=== PATIENT | male | born 1980 | race Caucasian/White ===

== ENCOUNTER 2017-01-21 21:01 | Emergency (ER) | payer BC ==
[~2017-01-21] VITALS: Ht 167.6 cm; Wt 86.3 kg
[2017-01-21 22:02] VITALS: Ht 167.6 cm; Wt 86.3 kg
[2017-01-22] MEDS ORDERED: HYDROCODONE/APAP (5/325) TAB PO ONE (01:30)
--- NOTE | 2017-01-22 02:16 | RADRPT ---
PROCEDURE: CT head, without contrast. CLINICAL INDICATION: Headache for 3 weeks. TECHNIQUE: Noncontrast CT examination of the head, with axial, sagittal and coronal reformatted im ages. Automated dose exposure control was employed. CTDI: 45.01 and DLP: 720.23. COMPARISON: None. FINDINGS: Chronic changes of atrophy and small vessel disease white matter. No acute hemorrhage. Subarachnoid spaces are substantially preserved and symmetric. Ventricles ar e unremarkable. No mass effect. [place]-white matter distinction is preserved without evident decreased attenuation t o suggest acute or recent infarct. Mild mucosal thickening scattered throughout the ethmoid air cells with mucous retention cysts in th e right maxillary sinuses. Sinuses and osseous structures are otherwise unremarkable. IMPRESSION: 1. Sinusitis in the ethmoid air cells and mild mucous retention cyst in the right maxillary sinus. 2. Chronic changes of atrophy and small vessel disease white matter, and otherwise, no acute proces s in the head. RPTAT: [facility] Physician Kike Date Time Electronically viewed and signed by Physician Kike on 01/22/2017 02:16 RS/
--- NOTE | 2017-01-22 02:23 | ERD ---
ER Documentation Chief Complaint Date/Time DATE: 01/22/17 TIME: 02:23 Chief Complaint C/O INTERMITTENT MORE X3 WEEKS. PAIN MEDS INEFFECTIVE. HPI This a 36-year-old male who presents the emergency department today complaining of a headache for the past 3 weeks. Patient states that has been intermittent but now it is more constant. States he saw his doctor yesterday and was given a Toradol shot and Ativan. States that the pain has not resolved and the pain is mostly on the right side of his face onto his head. States he is also taking Motrin with no improvement in pain. States when he did have the "shot" his pain did improve for a little while but it has now returned. Denies any nasal congestion, nausea or vomiting, light sensitivity. ROS All systems reviewed and are negative except as per history of present illness. Medications Home Meds Active Scripts Cetirizine Hcl* (Zyrtec*) 10 Mg Capsule, 10 MG PO DAILY, #10 TAB.CHEW Prov:RIN HAMMONDS PA-C 01/22/17 Fluticasone Propionate (Flonase Allergy Relief) 9.9 Ml [place].susp, 2 SPRAY NASAL DAILY, #1 BOTTLE TO EACH NOSTRIL Prov:RIN HAMMONDS PA-C 01/22/17 Naproxen* (Naprosyn*) 500 Mg Tablet, 500 MG PO BID Y for PAIN AND/OR INFLAMMATION, #30 TAB Prov:RIN HAMMONDS PA-C 01/22/17 Hydrocodone/Acetaminophen ([place] 5-325 Tablet) 1 Each Tablet, 1 TAB PO Q6H Y for PAIN, #12 TAB Prov:RIN HAMMONDS PA-C 01/22/17 Amoxicillin/Potassium Clav (Amox-Clav 875-125 mg Tablet) 875-125 mg Tab, 1 TAB PO BID for 10 Days, #20 TAB Prov:RIN HAMMONDSC 01/22/17 Allergies Allergies: Coded Allergies: No Known Allergy (Unverified , 01/21/17) PMhx/Soc Medical and Surgical Hx: pt denies Surgical Hx History of Surgery: No (DENIES SURGICAL HX.) Anesthesia Reaction: No Hx Neurological Disorder: No Hx Respiratory Disorders: No Hx Cardiac Disorders: No Hx Psychiatric Problems: No Hx Miscellaneous Medical Probl: Yes (MIGRAINES DX 12/2016) Hx Alcohol Use: No Hx Substance Use: No Hx Tobacco Use: No Smoking Status: Never smoker Physical Exam Vitals Vital Signs Date Time Temp Pulse Resp B/P Pulse Ox O2 Delivery O2 Flow Rate FiO2 01/21/17 22:02 98.9 79 18 118/86 99 Physical Exam Const: No acute distress Head: Atraumatic Eyes: Normal Conjunctiva. PERRLA. EOM intact ENT: Normal External Ears, Nose and Mouth. Neck: Full range of motion..~ No meningismus. Resp: Clear to auscultation bilaterally Cardio: Regular rate and rhythm, no murmurs Skin: No petechiae or rashes Ext: No cyanosis, or edema Neur: Awake and alert. No focal neurologic deficits. No gait ataxia. Psych: Normal Mood and Affect Results 24 hrs Current Medications Medications (Trade) Dose Ordered Sig/Stephany Route PRN Reason Start Time Stop Time Status Last Admin Dose Admin Acetaminophen/ Hydrocodone Bitart ([place] (5/325)) 1 tab ONCE ONCE PO 01/22/17 01:30 01/22/17 01:31 DC 01/22/17 01:21 DIAGNOSTIC IMAGING REPORT Patient: KARLA DOHERTY : 1980 Age: 36 Sex: M MR #: [id number] DOS: 01/22/17 0000 Ordering MD: RIN HAMMONDS PA-C Location: [facility] Room/Bed: PROCEDURE: CT head, without contrast. CLINICAL INDICATION: Headache for 3 weeks. TECHNIQUE: Noncontrast CT examination of the head, with axial, sagittal and coronal reformatted images. Automated dose exposure control was employed. CTDI: 45.01 and DLP: 720.23. COMPARISON: None. FINDINGS: Chronic changes of atrophy and small vessel disease white matter. No acute hemorrhage. Subarachnoid spaces are substantially preserved and symmetric. Ventricles are unremarkable. No mass effect. [place]ura-white matter distinction is preserved without evident decreased attenuation to suggest acute or recent infarct. Mild mucosal thickening scattered throughout the ethmoid air cells with mucous retention cysts in the right maxillary sinuses. Sinuses and osseous structures are otherwise unremarkable. IMPRESSION: 1. Sinusitis in the ethmoid air cells and mild mucous retention cyst in the right maxillary sinus. 2. Chronic changes of atrophy and small vessel disease white matter, and otherwise, no acute process in the head. RPTAT: [facility] Physician Kike Date Time Electronically viewed and signed by Benjamin Peters Physician on 01/22/2017 02:16 RS/ CC: RIN HAMMONDS PA-C Procedures/MDM This a 36-year-old male who presents to the emergency department today complaining of right-sided headache for the past 3 weeks. Pain was initially intermittent however it has been more constant in the past couple of days. Given that patient has seen his primary care doctor and has not had much of an improvement with a Toradol injection and he complains of this persistent headache I did obtain a head CT. Head CT noncontrast shows sinusitis in the ethmoid air cells and mild mucous retention cyst in the right maxillary sinus. There are chronic changes of atrophy and small vessel disease white matter and otherwise no acute process in the head. There is no acute hemorrhage. Patient does have no focal neurologic deficits and have low suspicion for acute hemorrhage, mass, abscess. Patient denies any nausea vomiting or light sensitivity and low suspicion for migraine type headache. Patient symptoms a headache at this time especially given his complaints of headache on the right side and the location of the sinusitis on the right side of his maxillary sinus his symptoms at this time most consistent with sinusitis. She was given [place] here in the emergency department. I will give him a short course for home. Patient was also given a prescription for Augmentin, Flonase and Zyrtec. Patient was instructed to follow-up with his primary care physician for further evaluation and management and possible referral to neurology given his chronic changes of atrophy and small vessel disease. He may also need to see a ENT specialist if his symptoms do not improve. Prior to discharge patient had indicated that he had an infection in 1 of his lower molars and is going to be getting a root canal and had taken some amoxicillin. I explained to him that the medication I am giving him would likely treat his sinusitis better. Patient understood. At this time the patient is stable for discharge and outpatient management. Patient should follow up with their PCP in the next 1-2 days. They may return to the emergency department sooner for any persistent or worsening of symptoms. Patient understood and agreed with the plan. Departure Diagnosis: Primary Impression: Headache Headache type: unspecified Headache chronicity pattern: episodic headache Intractability: not intractable Qualified Code: R51 - Nonintractable episodic headache, unspecified headache type Additional Impression: Sinusitis Sinusitis location: ethmoidal Chronicity: unspecified Qualified Code: J32.2 - Ethmoid sinusitis, unspecified chronicity Condition: RIN Kelly PA-C January 22, 2017 02:23
[2017-01-22] MEDS ORDERED: AMOX1TAB10 PO (02:31)
[2017-01-22] MEDS ORDERED: FLUT9.9S NASAL (02:32)
[2017-01-22] MEDS ORDERED: NAPR-260 PO (02:32)
[2017-01-22] MEDS ORDERED: HYDR-906 PO (02:32)
[2017-01-22] MEDS ORDERED: CETI10CA PO (02:33)
[2017-01-22 02:46] VITALS: BP 126/79; PULSE 72; RESP 16
== END 2017-01-22 02:48 | disposition home or self-care (01) ==
LOC: FTE 21:01
DX: R51 Headache (principal); J32.2 Chronic ethmoidal sinusitis
CPT/HCPCS: 70450